=== PATIENT | male | born 1970 | race American Indian/Alaskan Native ===

== ENCOUNTER 2021-04-08 11:24 | Emergency (ER) | payer BC ==
--- NOTE | 2021-04-08 11:41 | Event Note ---
ED Screening Note Date of service: 04/08/21 Time: 11:39 ED Screening Note: This 50-year-old male with no medical problems presents ED with complaint of bright red blood in his stool times this morning. Patient states that he felt a little abdominal cramping last night and then still just gushed out and he saw blood in it. Patient states this is first time this is happened. Patient denies nausea vomiting or diarrhea This initial assessment/diagnostic orders/clinical plan/treatment(s) is/are subject to change based on patients health status, clinical progression and re- assessment by fellow clinical providers in the ED. Further treatment and workup at subsequent clinical providers discretion. Patient/guardian urged not to elope from the ED as their condition may be serious if not clinically assessed and managed. Initial orders include: Labs, UA, Rectal exam
--- NOTE | 2021-04-08 12:12 | XRay Report ---
ABDOMEN 3 VIEW(S) INDICATION / CLINICAL INFORMATION: pain/blood in stool. COMPARISON: None available. FINDINGS: TUBES / LINES: None. BOWEL GAS PATTERN: No significant abnormality. FREE AIR / EXTRALUMINAL GAS: None seen. ADDITIONAL FINDINGS: No significant additional findings. IMPRESSION: 1. No significant abnormality. Signer Name: Philip Ceja MD Signed: 04/08/2021 12:07 PM Workstation Name: [id number]
--- NOTE | 2021-04-08 12:22 | Emergency Department Report ---
ED GI Bleed HPI - General Chief complaint: GI Bleed Stated complaint: BLOOD IN STOOL Time Seen by Provider: 04/08/21 12:04 Source: patient Mode of arrival: Ambulatory Limitations: No Limitations - History of Present Illness Initial comments: Patient is 50 years old male with no significant past medical history. Patient presented to the ER complaining of 1 episode of passing blood in the stool happened this morning. Patient stated that happened in the morning. Patient stated that he has mild left lower quadrant abdominal pain. Patient denied any diarrhea or constipation. Patient denied any dizziness, shortness of breath or chest pain. No fever or chills. MD complaint: blood on toilet paper -: This morning - Related Data Previous Rx's Medication Instructions Recorded Last Taken Type Cyclobenzaprine [Flexeril 10mg] 10 mg PO Q12H PRN #14 tablet 09/26/18 Unknown Rx Ibuprofen [Motrin] 800 mg PO Q8HR PRN #12 tablet 09/26/18 Unknown Rx Allergies Allergy/AdvReac Type Severity Reaction Status Date / Time No Known Allergies Allergy Verified 04/08/21 11:34 ED Review of Systems ROS: Stated complaint: BLOOD IN STOOL Other details as noted in HPI Comment: All other systems reviewed and negative Constitutional: denies: chills, fever Respiratory: denies: cough, shortness of breath, SOB with exertion Cardiovascular: denies: chest pain, palpitations Gastrointestinal: abdominal pain, hematochezia. denies: nausea, vomiting, hematemesis, melena Genitourinary: denies: hematuria Neurological: denies: headache, weakness, numbness, paresthesias, confusion ED Past Medical Hx - Past Medical History Previous Medical History?: No - Surgical History Past Surgical History?: No - Social History Smoking Status: Current Every Day Smoker Substance Use Type: Alcohol, Marijuana - Medications Home Medications: Home Medications Medication Instructions Recorded Confirmed Last Taken Type Cyclobenzaprine [Flexeril 10mg] 10 mg PO Q12H PRN #14 tablet 09/26/18 Unknown Rx Ibuprofen [Motrin] 800 mg PO Q8HR PRN #12 tablet 09/26/18 Unknown Rx ED Physical Exam - General Limitations: No Limitations General appearance: alert, in no apparent distress - Head Head exam: Present: atraumatic, normocephalic, normal inspection - Eye Eye exam: Present: normal appearance, PERRL - ENT ENT exam: Present: normal exam, normal orophraynx, mucous membranes moist - Neck Neck exam: Present: normal inspection, full ROM. Absent: tenderness, men ingismus - Respiratory Respiratory exam: Present: normal lung sounds bilaterally - Cardiovascular Cardiovascular Exam: Present: regular rate, normal rhythm, normal heart sounds - GI/Abdominal GI/Abdominal exam: Present: soft, normal bowel sounds. Absent: distended, tenderness, guarding, rebound, rigid, organomegaly, mass, bruit, pulsatile mass, hernia - Rectal Rectal exam: Present: normal inspection, normal rectal tone, heme (+) stool. Ab sent: black stool, bloody stool, fecal impaction, hemorrhoids, mass, tenderness, prostate tenderness, prostate enlargement - Back Exam Back exam: Present: normal inspection, full ROM. Absent: CVA tenderness (R), CVA tenderness (L) - Neurological Exam Neurological exam: Present: alert, oriented X3, CN II-XII intact - Psychiatric Psychiatric exam: Present: normal mood - Skin Skin exam: Present: warm, intact, normal color ED Course Vital Signs 04/08/21 04/08/21 04/08/21 11:35 13:20 13:31 Temperature 99.1 F Pulse Rate 68 60 Respiratory 20 21 Rate Blood Pressure 143/80 134/69 127/71 O2 Sat by Pulse 97 95 Oximetry 04/08/21 04/08/21 04/08/21 14:01 14:31 15:01 Temperature Pulse Rate 56 L 59 L 64 Respiratory 17 13 12 Rate Blood Pressure 129/65 134/75 129/65 O2 Sat by Pulse 97 98 96 Oximetry ED Medical Decision Making - Lab Data Result diagrams: 04/08/21 12:57 04/08/21 12:57 - Medical Decision Making Patient is 50 years old male with no significant past medical history. Patient presented to the ER complaining of 1 episode of passing blood in the stool happened this morning. Patient stated that happened in the morning. Patient stated that he has mild left lower quadrant abdominal pain. Patient denied any diarrhea or constipation. Patient denied any dizziness, shortness of breath or chest pain. No fever or chills. Labs reviewed and is unremarkable including stable hemoglobin of 15. Vital signs stable. Patient has no more episode of hematochezia or melena. Patient is strongly advised to follow-up with GI in the next 2 to 3days. I gave him [facility] to follow-up with in the next 2 to 3 days. Patient also advised to return to the ER if he develop any new symptoms. Critical care attestation.: If time is entered above; I have spent that time in minutes in the direct care of this critically ill patient, excluding procedure time. ED Disposition Clinical Impression: GI bleed Disposition: DC-01 TO HOME OR SELFCARE Is pt being admited?: No Condition: Stable Instructions: Gastrointestinal Bleeding Referrals: PRIMARY CARE, [Primary Care Provider] - 3-5 Days [facility] [Provider Group] - 3-5 Days Forms: Accompanied Note, Work/School Release Form(ED)
[2021-04-08 14:57] LABS: Basophils # (Auto) 0.1 K/mm3 (0.0-0.1); Basophils % (Auto) 0.9 % (0.0-1.8); Eosinophils # (Auto) 0.2 K/mm3 (0.0-0.4); Eosinophils % (Auto) 1.8 % (0.0-4.3); Hematocrit 43.2 % (35.5-45.6); Hemoglobin 15.1 gm/dl (11.8-15.2); Lymphocytes # (Auto) 2.9 K/mm3 (1.2-5.4); Lymphocytes % (Auto) 34.4 % (13.4-35.0); Mean Corpuscular HGB Conc 35 % (32-34); Mean Corpuscular Volume 98 fl (84-94); Monocytes # (Auto) 0.7 K/mm3 (0.0-0.8); Monocytes % (Auto) 8.1 % (0.0-7.3); Platelet Count 238 K/mm3 (140-440); Red Blood Count 4.41 M/mm3 (3.65-5.03); Red Cell Distribution Width 12.7 % (13.2-15.2)
[2021-04-08 15:07] LABS: INR 1.11 (0.87-1.13)
[2021-04-08 15:18] LABS: Alanine Aminotransferase 21 units/L (7-56); Albumin 3.5 g/dL (3.9-5); BUN/Creatinine Ratio 13; Blood Urea Nitrogen 12 mg/dL (9-20); Calcium 8.7 mg/dL (8.4-10.2); Hemolysis Index 12
[2021-04-08 15:19] VITALS: BP 129/65
[2021-04-08 15:37] LABS: Bilirubin,Urine NEG (Negative); Blood,Urine NEG (Negative); Color,Urine Yellow (Yellow); Mucus,Urine FEW /HPF; Protein,Urine <15 mg/dL mg/dL (Negative); Urobilinogen,Urine < 2.0 mg/dL (<2.0)
== END 2021-04-08 15:35 | disposition home or self-care (01) ==
LOC: ED 11:24
DX: K92.2 Gastrointestinal hemorrhage, unspecified (principal); F17.200 Nicotine dependence, unspecified, uncomplicated; F12.90 Cannabis use, unspecified, uncomplicated; Z79.899 Other long term (current) drug therapy
CPT/HCPCS: 36415; 74019; 80053; 81001; 82271; 83690; 85025; 85610; 85730

== ENCOUNTER 2021-09-02 19:56 | Emergency (ER) | payer BC | END 2021-09-02 20:18 | disposition left against medical advice (07) | LOC: ED 19:56 | DX: R19.5 Other fecal abnormalities (principal); Z53.21 Procedure and treatment not carried out due to patient leaving prior to being seen by health care provider ==

== ENCOUNTER 2021-09-03 09:50 | Emergency (ER) | payer BC ==
[2021-09-03 10:01] VITALS: BP 138/96
--- NOTE | 2021-09-03 10:16 | Event Note ---
ED Screening Note Date of service: 09/03/21 Time: 10:10 ED Screening Note: 50-year-old male presents emergency department chief complaint of melena and fatigue over the past 2 to 3 days. This initial assessment/diagnostic orders/clinical plan/treatment(s) is/are subject to change based on patients health status, clinical progression and re- assessment by fellow clinical providers in the ED. Further treatment and workup at subsequent clinical providers discretion. Patient/guardian urged not to elope from the ED as their condition may be serious if not clinically assessed and managed. Initial orders include: Labs, occult blood
--- NOTE | 2021-09-03 10:31 | Emergency Department Report ---
ED Abdominal Pain HPI - General Chief Complaint: GI Bleed Stated Complaint: BLACK STOOL Time Seen by Provider: 09/03/21 10:13 Source: patient Mode of arrival: Ambulatory Limitations: No Limitations - History of Present Illness Initial Comments: Patient presents with a 1 to 2-day history of black stool. There is no trauma. There has been no bright red blood per rectum. Patient does report having some epigastric pain described as tightness and fullness. He is never had symptoms like this before. There is no fevers or chills. He has had no trauma. He has no travel out of the country. Has not been taking iron. He has not been using Pepto-Bismol. Patient states that he feels weak and dizzy. There are worse symptoms with upright position and then with supine position. He has no prior history of ulcer. He has not been taking a lot of NSAIDs. - Related Data Previous Rx's Medication Instructions Recorded Last Taken Type Cyclobenzaprine [Flexeril 10mg] 10 mg PO Q12H PRN #14 tablet 09/26/18 Unknown Rx Ibuprofen [Motrin] 800 mg PO Q8HR PRN #12 tablet 09/26/18 Unknown Rx Allergies Allergy/AdvReac Type Severity Reaction Status Date / Time No Known Allergies Allergy Verified 09/03/21 09:59 ED Review of Systems ROS: Stated complaint: BLACK STOOL Other details as noted in HPI Comment: All other systems reviewed and negative Constitutional: denies: fever ENT: denies: ear pain Respiratory: denies: cough Cardiovascular: denies: chest pain Endocrine: denies: unexplained weight loss Gastrointestinal: as per HPI Genitourinary: denies: hematuria Musculoskeletal: denies: back pain Skin: denies: rash Neurological: as per HPI, weakness Hematological/Lymphatic: denies: easy bruising ED Past Medical Hx - Past Medical History Previous Medical History?: No - Surgical History Past Surgical History?: No - Family History Family history: no significant - Social History Smoking Status: Current Every Day Smoker (We discussed tobacco cessation x3 minutes) Substance Use Type: Alcohol, Marijuana - Medications Home Medications: Home Medications Medication Instructions Recorded Confirmed Last Taken Type Cyclobenzaprine [Flexeril 10mg] 10 mg PO Q12H PRN #14 tablet 09/26/18 Unknown Rx Ibuprofen [Motrin] 800 mg PO Q8HR PRN #12 tablet 09/26/18 Unknown Rx ED Physical Exam - General Limitations: No Limitations, Other (Pulse ox noted and normal) General appearance: alert, in no apparent distress - Head Head exam: Present: atraumatic, normocephalic, normal inspection - Eye Eye exam: Present: normal appearance, EOMI, other (No conjunctival pallor). Absent: scleral icterus - ENT ENT exam: Present: normal exam, normal orophraynx, mucous membranes moist, normal external ear exam - Neck Neck exam: Present: normal inspection. Absent: meningismus - Respiratory Respiratory exam: Present: normal lung sounds bilaterally. Absent: respiratory distress - Cardiovascular Cardiovascular Exam: Present: regular rate, normal rhythm - GI/Abdominal GI/Abdominal exam: Present: soft. Absent: tenderness - Extremities Exam Extremities exam: Present: normal capillary refill. Absent: pedal edema - Back Exam Back exam: Absent: CVA tenderness (R), CVA tenderness (L) - Neurological Exam Neurological exam: Present: alert, oriented X3, normal gait. Absent: motor sensory deficit - Psychiatric Psychiatric exam: Present: normal affect, normal mood - Skin Skin exam: Present: warm, dry ED Course Vital Signs 09/03/21 09/03/21 09:57 11:47 Temperature 97.8 F Pulse Rate 75 Respiratory 18 Rate Blood Pressure 138/96 O2 Sat by Pulse 98 99 Oximetry - Reevaluation(s) Reevaluation #1: 09/03/21 10:31 IV and labs have been ordered. Old records reviewed. Reevaluation #2: 09/03/21 12:51 Labs have been noted. Patient will be discharged. I went to discuss this with the patient and he was gone. I attempted to call the patient and left a message. ED Medical Decision Making - Lab Data Result diagrams: 09/03/21 10:23 09/03/21 10:23 Rhythm strip: Normal sinus rhythm without ectopy. Monitor observed 10 second. - Medical Decision Making Patient had presented with dark stools. Labs have been ordered. They have been reviewed. Patient did not have significant anemia. He did not have an elevated BUN. Clinically this did not seem to be a GI bleed. Prior to my discu ssion of these results and findings with the patient, he was not in the department. His discharge papers had not been complete. He was apparently discharged. I did attempt phone call with the patient. Critical care attestation.: If time is entered above; I have spent that time in minutes in the direct care of this critically ill patient, excluding procedure time. ED Disposition Clinical Impression: Dark stools Disposition: 01 HOME / SELF CARE / HOMELESS Is pt being admited?: No Condition: Stable Referrals: PRIMARY CARE,MD [Primary Care Provider] - 3-5 Days Forms: Accompanied Note, Work/School Release Form(ED)
[2021-09-03 10:37] LABS: Mean Corpuscular HGB Conc 36 % (32-34); Mean Corpuscular Volume 96 fl (84-94); Platelet Count 195 K/mm3 (140-440); Red Blood Count 5.28 M/mm3 (3.65-5.03); Red Cell Distribution Width 13.1 % (13.2-15.2)
[2021-09-03 10:38] LABS: Hemoglobin 18.2 gm/dl (11.8-15.2)
[2021-09-03 10:39] LABS: Hematocrit 50.8 % (35.5-45.6)
[2021-09-03 10:55] LABS: BUN/Creatinine Ratio 11; Blood Urea Nitrogen 11 mg/dL (9-20); Calcium 9.4 mg/dL (8.4-10.2); Hemolysis Index 9
== END 2021-09-03 11:48 | disposition home or self-care (01) ==
LOC: ED 09:50
DX: R19.5 Other fecal abnormalities (principal); F17.290 Nicotine dependence, other tobacco product, uncomplicated
CPT/HCPCS: 36415; 80048; 85027; 99283